=== PATIENT | female | born 1940 ===

== ENCOUNTER 2020-08-12 05:46 | Emergency (ER) | payer OTHER ==
[~2020-08-12] VITALS: Ht 162.6 cm; Wt 68.0 kg
[2020-08-12] MEDS ORDERED: METF500 PO (06:09)
[2020-08-12] MEDS ORDERED: Prinivil10 MG PO ×2 (06:09→06:10)
[2020-08-12] MEDS ORDERED: HYDROCHLOROTHIA25 MG PO (06:10)
[2020-08-12] MEDS ORDERED: TIZA4 PO (06:10)
[2020-08-12 06:35] LABS: BASOPHILS ABSOLUTE AUTO 0.05 K/mm3 (0.00-0.23); BASOPHILS PERCENT AUTO 1 % (0-2); EOSINOPHILS ABSOLUTE AUTO 0.15 K/mm3 (0.00-0.68); EOSINOPHILS PERCENT AUTO 2 % (0-6); Hematocrit 38.2 % (33.0-51.0); Hemoglobin 13.1 g/dL (11.5-16.0); IMMATURE GRAN ABSOLUTE AUTO 0.03 K/mm3 (0.00-0.10); IMMATURE GRAN PERCENT AUTO 0 % (0-1); LYMPHOCYTES ABSOLUTE AUTO 3.01 K/mm3 (0.84-5.20); LYMPHOCYTES PERCENT AUTO 42 % (21-46); MONOCYTES ABSOLUTE AUTO 0.82 K/mm3 (0.16-1.47); MONOCYTES PERCENT AUTO 12 % (4-13); Mean Corpuscular HGB Conc 34.3 g/dL (31.5-36.5); Mean Corpuscular Volume 85 fL (80-100); Mean Platelet Volume 10.1 fL (9.1-12.4); NEUTROPHILS ABSOLUTE AUTO 3.06 K/mm3 (1.96-9.15); NEUTROPHILS PERCENT AUTO 43 % (41-73); Platelet Count 296 K/mm3 (150-400); RDW Coefficient Variation 12.4 % (11.7-14.2); RDW Standard Deviation 38.2 fL (35.1-46.3); Red Blood Cell Count 4.51 M/mm3 (3.80-5.20); White Blood Cell Count 7.12 K/mm3 (4.00-11.30)
[2020-08-12 06:48] LABS: Alanine Aminotransfer (ALT/SGP 24 U/L (12-78); Albumin, Blood 3.3 g/dL (3.4-5.0); Albumin/Globulin Ratio 0.8 (0.8-1.8); Alk Phos 72 U/L (50-136); Anion Gap 7 mmol/L (6-16); Aspartate Aminotrans (AST/SGOT 15 U/L (12-37); Bilirubin, Total 0.3 mg/dL (0.1-1.0); Blood Urea Nitrogen 22 mg/dL (8-24); Bun/Creatinine Ratio 33.2 (12.0-20.0); CO2, Blood 29 mmol/L (21-32); Calcium, Blood 9.5 mg/dL (8.5-10.1); Chloride, Blood 96 mmol/L (98-108); Creatinine, Blood 0.66 mg/dL (0.40-1.00); Glomerular Filtration Rate >60 (60-); Glucose, Blood 185 mg/dL (70-99); Potassium, Blood 3.3 mmol/L (3.5-5.5); Sodium, Blood 132 mmol/L (136-145); Total Protein, Blood 7.3 g/dL (6.4-8.2)
[2020-08-12] MEDS ORDERED: HYDR1TAB94 PO (08:29)
[2020-08-12] MEDS ORDERED: ONDA4ODT MM (08:37)
[2020-08-12] MEDS ORDERED: PRED20 PO (08:37)
== END 2020-08-12 08:53 | disposition home or self-care (01) ==
LOC: ER 05:46
PROVIDERS: Emergency Medicine
DX: N28.89 Other specified disorders of kidney and ureter (principal); R10.9 Unspecified abdominal pain; F17.210 Nicotine dependence, cigarettes, uncomplicated; Z79.84 Long term (current) use of oral hypoglycemic drugs
CPT/HCPCS: 36415; 73502; 74177; 80053; 83690; 85025; 93005; 93010; 96374-59; 96375; 99284-25; J2405; J3010; Q9967

== ENCOUNTER 2020-09-22 22:13 | Inpatient (IN) | payer OTHER ==
[~2020-09-22] VITALS: Ht 160 cm; Wt 59.8 kg
[~2020-09-22 22:13] MED LIST: HYDR1TAB94 PO; HYDROCHLOROTHIA25 MG PO; METF500 PO; ONDA4ODT MM; PRED20 PO; Prinivil10 MG PO; TIZA4 PO
[2020-09-23 00:33] LABS: BASOPHILS ABSOLUTE AUTO 0.03 K/mm3 (0.00-0.23); BASOPHILS PERCENT AUTO 0 % (0-2); EOSINOPHILS ABSOLUTE AUTO 0.07 K/mm3 (0.00-0.68); EOSINOPHILS PERCENT AUTO 1 % (0-6); Hematocrit 36.9 % (33.0-51.0); Hemoglobin 13.5 g/dL (11.5-16.0); IMMATURE GRAN ABSOLUTE AUTO 0.04 K/mm3 (0.00-0.10); IMMATURE GRAN PERCENT AUTO 0 % (0-1); LYMPHOCYTES ABSOLUTE AUTO 3.06 K/mm3 (0.84-5.20); LYMPHOCYTES PERCENT AUTO 30 % (21-46); MONOCYTES ABSOLUTE AUTO 1.17 K/mm3 (0.16-1.47); MONOCYTES PERCENT AUTO 12 % (4-13); Mean Corpuscular HGB Conc 36.6 g/dL (31.5-36.5); Mean Corpuscular Volume 79 fL (80-100); Mean Platelet Volume 9.1 fL (9.1-12.4); NEUTROPHILS ABSOLUTE AUTO 5.83 K/mm3 (1.96-9.15); NEUTROPHILS PERCENT AUTO 57 % (41-73); Platelet Count 273 K/mm3 (150-400); RDW Coefficient Variation 12.2 % (11.7-14.2); RDW Standard Deviation 34.6 fL (35.1-46.3); Red Blood Cell Count 4.66 M/mm3 (3.80-5.20)
[2020-09-23 00:52] LABS: Troponin I 0.035 ng/mL (0.000-0.040)
[2020-09-23 01:02] LABS: Alanine Aminotransfer (ALT/SGP 25 U/L (12-78); Albumin, Blood 3.3 g/dL (3.4-5.0); Albumin/Globulin Ratio 0.9 (0.8-1.8); Alk Phos 67 U/L (50-136); Anion Gap 10 mmol/L (6-16); Aspartate Aminotrans (AST/SGOT 23 U/L (12-37); Bilirubin, Total 0.6 mg/dL (0.1-1.0); Blood Urea Nitrogen 12 mg/dL (8-24); Bun/Creatinine Ratio 13.7 (12.0-20.0); CO2, Blood 28 mmol/L (21-32); Calcium, Blood 8.6 mg/dL (8.5-10.1); Chloride, Blood 78 mmol/L (98-108); Creatinine, Blood 0.87 mg/dL (0.40-1.00); Globulin, Blood 3.7 g/dL (2.2-4.0); Glomerular Filtration Rate >60 (60-); Glucose, Blood 161 mg/dL (70-99); Potassium, Blood 3.6 mmol/L (3.5-5.5); Sodium, Blood 116 mmol/L (136-145)
[2020-09-23] MEDS ORDERED: HYDCHL25 PO (02:11)
[2020-09-23] MEDS ORDERED: PREGABALIN75 MG PO (02:12)
[2020-09-23] MEDS ORDERED: ZOFRAN4 MG PO (02:12)
[2020-09-23 02:33] LABS: Bilirubin, Urine Neg (Neg); Blood, Urine 4+ (Neg); Color, Urine Yellow (P-Yellow); Glucose Qualitative, Urine 2+ (Neg); Ketones, Urine 2+ (Neg); Leukocyte Esterase, Urine Neg (Neg); Nitrite, Urine Neg (Neg); Protein, Urine 1+ (Neg); Urobilinogen, Urine NORM (Normal)
[2020-09-23 02:34] LABS: Appearance, Urine Clear (Clear); Bacteria Mod /hpf; Mucus Light (0-Heavy); Squamous Epithelial Cells Mod /hpf (Few); White Blood Cells, Urine Rare /hpf (0-5)
--- NOTE | 2020-09-23 04:56 | NUR ---
ADMIT NOTE HANDOFF RECEIVED FROM POWER LINEWORKER ANGELA. PT ARRIVED TO FLOOR VIA GURNEY. DAUGHTER CAME WITH TO TRANSLATE, PT ONLY SPEAKS TAMAZIGHT. PT ORIENTED TO UNIT TELEMETRY IN PLACE, IV FLUIDS INFUSING ORDERED. CALL BUTTON WITHIN REACH
[2020-09-23 09:29] LABS: Anion Gap 7 mmol/L (6-16); Blood Urea Nitrogen 9 mg/dL (8-24); CO2, Blood 28 mmol/L (21-32); Calcium, Blood 8.4 mg/dL (8.5-10.1); Chloride, Blood 85 mmol/L (98-108); Creatinine, Blood 0.69 mg/dL (0.40-1.00); Glomerular Filtration Rate >60 (60-); Glucose, Blood 167 mg/dL (70-99); Potassium, Blood 3.3 mmol/L (3.5-5.5); Sodium, Blood 120 mmol/L (136-145)
[2020-09-23 13:02] LABS: Anion Gap 7 mmol/L (6-16); Blood Urea Nitrogen 10 mg/dL (8-24); Bun/Creatinine Ratio 17.2 (12.0-20.0); CO2, Blood 26 mmol/L (21-32); Calcium, Blood 8.4 mg/dL (8.5-10.1); Chloride, Blood 90 mmol/L (98-108); Creatinine, Blood 0.58 mg/dL (0.40-1.00); Glomerular Filtration Rate >60 (60-); Glucose, Blood 183 mg/dL (70-99); Potassium, Blood 3.4 mmol/L (3.5-5.5); Sodium, Blood 123 mmol/L (136-145)
--- NOTE | 2020-09-23 17:31 | NUR ---
SHIFT SUMMARY PT AXO, PLEASANT AND COOPERATIVE WITH CARE. ONLY [place] ISLANDER SPEAKING, DAUGHTER IN ROOM TO ASSIST WITH TRANSLATING THOUGH CHARGE NURSE LOOKING FOR DENIAL RESOLUTION SPECIALIST PHONE FOR MEDICAL TRANSLATING AT THIS TIME. VSS. PT REPORTS DIARRHEA IS SLOWING DOWN BUT COMPLAINS OF BLOOD WHEN SHE WIPES AFTER SHE URINATES. URINE YELLOW. PT UP WITH 1 ASSIST WITH FWW. PT COMPLAINED OF NECK PAIN 3/10, MEDICATED PER EMAR. IV PATENT AND INFUSING PER EMAR. BED IN LOW POSITION, CALL LIGHT WITHIN REACH. PT'S DAUGHTER STATED THAT PATIENT HAS NOT BEEN ABLE TO SLEEP BUT DID NOT WANT TO TAKE LYRICA, DR ROSENBERG AWARE, NEW ORDERS PLACED. PT SITTING UP IN BED EATING DINNER AT THIS TIME.
--- NOTE | 2020-09-24 04:33 | NUR ---
SHIFT SUMMARY ADMITTED FOR HYPONATREMIA. FULL CODE. PLAN IS TO OBTAIN THE ABDOMINAL CT SCAN RESULTS/INTERPRETATION AND THEN DEVELOP A PLAN OF CARE. TELEMETRY: LALO @ 52 BPM. SHE IS ACHS. NS W/20 MEQ INFUSING. IV ANTIB RX ARE SCHEDULED. SHE REPORTS HX OF VAGINAL (OR URETHRAL?) BLEEDING, A RENAL MASS, PANCREATIC CYST, AND SCIATICA. I DID CALL HOSPITALIST TO OBTAIN A STRONGER SLEEPING PILL, THE MELATONIN WAS UNSUCCESSFUL. EVEN SO, SHE HAS NOT SLEPT MUCH THIS SHIFT AT ALL EITHER. I HAVE NOTICED FREQUENCY OF URINATION.
[2020-09-24 06:10] LABS: BASOPHILS ABSOLUTE AUTO 0.02 K/mm3 (0.00-0.23); BASOPHILS PERCENT AUTO 0 % (0-2); EOSINOPHILS ABSOLUTE AUTO 0.01 K/mm3 (0.00-0.68); EOSINOPHILS PERCENT AUTO 0 % (0-6); Hematocrit 35.3 % (33.0-51.0); Hemoglobin 12.3 g/dL (11.5-16.0); IMMATURE GRAN ABSOLUTE AUTO 0.03 K/mm3 (0.00-0.10); IMMATURE GRAN PERCENT AUTO 1 % (0-1); LYMPHOCYTES ABSOLUTE AUTO 1.41 K/mm3 (0.84-5.20); LYMPHOCYTES PERCENT AUTO 30 % (21-46); MONOCYTES ABSOLUTE AUTO 0.62 K/mm3 (0.16-1.47); MONOCYTES PERCENT AUTO 13 % (4-13); Mean Corpuscular HGB 29.1 pg (26.0-34.0); Mean Corpuscular HGB Conc 34.8 g/dL (31.5-36.5); Mean Platelet Volume 9.1 fL (9.1-12.4); NEUTROPHILS ABSOLUTE AUTO 2.65 K/mm3 (1.96-9.15); NEUTROPHILS PERCENT AUTO 56 % (41-73); Platelet Count 252 K/mm3 (150-400); RDW Coefficient Variation 12.9 % (11.7-14.2); RDW Standard Deviation 38.5 fL (35.1-46.3); Red Blood Cell Count 4.23 M/mm3 (3.80-5.20); White Blood Cell Count 4.74 K/mm3 (4.00-11.30)
[2020-09-24 06:13] LABS: Mean Corpuscular Volume 84 fL (80-100)
[2020-09-24 06:43] LABS: Alanine Aminotransfer (ALT/SGP 23 U/L (12-78); Albumin, Blood 3.1 g/dL (3.4-5.0); Albumin/Globulin Ratio 0.9 (0.8-1.8); Alk Phos 59 U/L (50-136); Aspartate Aminotrans (AST/SGOT 11 U/L (12-37); Bilirubin, Total 0.3 mg/dL (0.1-1.0); Blood Urea Nitrogen 7 mg/dL (8-24); Bun/Creatinine Ratio 9.8 (12.0-20.0); CO2, Blood 26 mmol/L (21-32); Calcium, Blood 8.8 mg/dL (8.5-10.1); Chloride, Blood 105 mmol/L (98-108); Creatinine, Blood 0.72 mg/dL (0.40-1.00); Globulin, Blood 3.3 g/dL (2.2-4.0); Glomerular Filtration Rate >60 (60-); Glucose, Blood 181 mg/dL (70-99); Total Protein, Blood 6.4 g/dL (6.4-8.2)
[2020-09-24 06:44] LABS: Anion Gap 3 mmol/L (6-16); Sodium, Blood 134 mmol/L (136-145)
--- NOTE | 2020-09-24 12:41 | NUR ---
ADMIT: 09/22/20 DISCHARGE: DX: Hyponatremia CC: [email or web address] BRANDIN CALL: RESIDENCE: CAREGIVER: Tran Witt , Child, DX: HTN, DM type 2 DME: DM supplies CCM: none HOME HEALTH: none SUMMARY: 09/24/20- no plan for d/c at this time. 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 Per Dr. Vieira, pt most likely to stay through the weekend. -kervin
[2020-09-24 18:34] LABS: SARS-Cov-2 (COVID-19) PCR, MMC NEGATIVE (NEGATIVE)
--- NOTE | 2020-09-24 18:38 | NUR ---
A&OX3, PLEASANT AND COOPERATIVE WITH CARE. LAO SPEAKING ONLY, PT'S DAUGHTER PRESENT MOST OF THE DAY TO EXPLAIN PROCEDURES, SHE HAS BEEN VERY HELPFUL. PT REPORTS PAIN TO ABD AND AND CHRONIC BACK PAIN THAT IS TOLERABLE AND DENIES NEED FOR PAIN MEDICATION. NO N/V, SOB. COVID TEST NEGATIVE TODAY. IV FLUIDS D/C'D. NO OTHER CHANGES OR CONCERNS.
--- NOTE | 2020-09-25 05:26 | NUR ---
PATIENT ALERT AND PLEASANT AND COOPERATIVE WITH CARE. DAUGHTER SPENT NIGHT AND TRANSLATED FOR HER SO SHE COULD ASK QUESTIONS AND UNDERSTAND TREATMENT PLAN. PATIENT ONLY COMPLAINED OF SOME VAGUE ABDOMINAL DISCOMFORT WHICH WAS SOLVED WITH SODA CRACKERS AND A CUP OF WARM SALTY WATER. SLEPT WELL OVERNIGHT.
[2020-09-25 06:31] LABS: BASOPHILS ABSOLUTE AUTO 0.04 K/mm3 (0.00-0.23); BASOPHILS PERCENT AUTO 1 % (0-2); EOSINOPHILS ABSOLUTE AUTO 0.06 K/mm3 (0.00-0.68); EOSINOPHILS PERCENT AUTO 1 % (0-6); Hematocrit 36.5 % (33.0-51.0); Hemoglobin 12.7 g/dL (11.5-16.0); IMMATURE GRAN ABSOLUTE AUTO 0.02 K/mm3 (0.00-0.10); IMMATURE GRAN PERCENT AUTO 0 % (0-1); LYMPHOCYTES ABSOLUTE AUTO 2.17 K/mm3 (0.84-5.20); LYMPHOCYTES PERCENT AUTO 29 % (21-46); MONOCYTES ABSOLUTE AUTO 0.71 K/mm3 (0.16-1.47); MONOCYTES PERCENT AUTO 9 % (4-13); Mean Corpuscular HGB Conc 34.8 g/dL (31.5-36.5); Mean Corpuscular Volume 83 fL (80-100); Mean Platelet Volume 9.6 fL (9.1-12.4); NEUTROPHILS ABSOLUTE AUTO 4.56 K/mm3 (1.96-9.15); NEUTROPHILS PERCENT AUTO 60 % (41-73); Platelet Count 259 K/mm3 (150-400); RDW Coefficient Variation 12.8 % (11.7-14.2); RDW Standard Deviation 38.7 fL (35.1-46.3); Red Blood Cell Count 4.38 M/mm3 (3.80-5.20); White Blood Cell Count 7.56 K/mm3 (4.00-11.30)
[2020-09-25 06:56] LABS: Anion Gap 7 mmol/L (6-16); Blood Urea Nitrogen 13 mg/dL (8-24); Bun/Creatinine Ratio 17.9 (12.0-20.0); CO2, Blood 24 mmol/L (21-32); Calcium, Blood 9.7 mg/dL (8.5-10.1); Chloride, Blood 102 mmol/L (98-108); Creatinine, Blood 0.73 mg/dL (0.40-1.00); Glomerular Filtration Rate >60 (60-); Glucose, Blood 227 mg/dL (70-99); Potassium, Blood 3.7 mmol/L (3.5-5.5); Sodium, Blood 133 mmol/L (136-145)
[2020-09-25] MEDS ORDERED: NORVASC10 MG PO (14:16)
[2020-09-25] MEDS ORDERED: METO50ER PO (14:17)
[2020-09-25] MEDS ORDERED: PANT40 PO (14:18)
[2020-09-25] MEDS ORDERED: TRAZ50 PO (14:19)
--- NOTE | 2020-09-25 16:10 | NUR ---
Discharge note The patient was A/OX4 to person, place, time and event. the patient and daughter was given written and verbal discharge information about medications and how and when to follow up with their provider at [facility]. The patient and the daughter verbalized the inderstanding of the discharge instruction and did not have any questions. The patient was discharged to the care of her daughter and she was escorted off the floor.
== END 2020-09-25 14:41 | disposition home health service (06) | DRG 641 ==
LOC: ER 22:13 → MEDS 09-23 03:43
PROVIDERS: Family Medicine; Internal Medicine; Student in an Organized Health Care Education/Training Program; ADMIT Internal Medicine
DX: E87.1 Hypo-osmolality and hyponatremia (principal); I16.0 Hypertensive urgency; R63.0 Anorexia; Z68.26 Body mass index [BMI] 26.0-26.9, adult; T50.2X5A Adverse effect of carbonic-anhydrase inhibitors, benzothiadiazides and other diuretics, initial encounter; M54.6 Pain in thoracic spine; I10 Essential (primary) hypertension; N93.9 Abnormal uterine and vaginal bleeding, unspecified; N28.9 Disorder of kidney and ureter, unspecified; G47.00 Insomnia, unspecified; Z20.822 Contact with and (suspected) exposure to COVID-19; R31.9 Hematuria, unspecified; E11.9 Type 2 diabetes mellitus without complications; Z90.49 Acquired absence of other specified parts of digestive tract; Z79.84 Long term (current) use of oral hypoglycemic drugs; Z79.899 Other long term (current) drug therapy; X58.XXXA Exposure to other specified factors, initial encounter
CPT/HCPCS: 36415; 71046; 74177; 80048; 80053; 81001; 82947; 83036; 83690; 83735; 84484; 84681; 85025; 87086; 93005; 93010; 96361; 96374; 97110; 97162; 97166; 97535; 99285-25; A9270; C9113; J0360; J0696; J1650; J2405; J3480; J7030; Q9967; U0004

== ENCOUNTER → 2020-09-27 | Outpatient (CLI) | payer OTHER ==
[~2020-09-27] MED LIST changes: +HYDCHL25 PO; +METO50ER PO; +NORVASC10 MG PO; +PANT40 PO; +PREGABALIN75 MG PO; +TRAZ50 PO; +ZOFRAN4 MG PO
[2020-09-27 09:42] LABS: Source, Urine Clean Catch
[2020-09-27 09:51] LABS: Bacteria Not Seen /hpf; Squamous Epithelial Cells Few /hpf (Few); White Blood Cells, Urine Not Seen /hpf (0-5)
== END | disposition home or self-care (01) ==
LOC: LAB SHORT 09:41 → LAB 09:41
PROVIDERS: Family Medicine
DX: R31.0 Gross hematuria (principal)
CPT/HCPCS: 81015

== ENCOUNTER → 2020-10-21 | Outpatient (CLI) | payer OTHER ==
[2020-10-21 13:19] LABS: Source, Urine Clean Catch
[2020-10-21 14:22] LABS: Color, Urine Yellow (P-Yellow)
[2020-10-21 14:23] LABS: Appearance, Urine Clear (Clear); Bacteria Few /hpf; Bilirubin, Urine Neg (Neg); Blood, Urine Neg (Neg); Glucose Qualitative, Urine Trace (Normal); Ketones, Urine Neg (Neg); Leukocyte Esterase, Urine Neg (Neg); Nitrite, Urine Neg (Neg); Protein, Urine Neg (Neg); Red Blood Cells, Urine 0-2 /hpf (0-2); Squamous Epithelial Cells Mod /hpf (Few); Urobilinogen, Urine NORM (Normal); White Blood Cells, Urine 0-2 /hpf (0-5)
== END | disposition home or self-care (01) ==
LOC: LAB 13:15 → LAB SHORT 13:15
PROVIDERS: Family Medicine
DX: R31.29 Other microscopic hematuria (principal)
CPT/HCPCS: 81001; 81003

== ENCOUNTER → 2022-09-19 | Outpatient (CLI) | payer OTHER | LOC: LAB 17:09 | DX: Z51.81 Encounter for therapeutic drug level monitoring (principal); Z79.899 Other long term (current) drug therapy ==

== ENCOUNTER → 2023-11-13 | Outpatient (CLI) | payer OTHER ==
[~2023-11-13] MED LIST changes: +MEMANTINE HCL511 PO; +NOVOLIN R100 UNIT/2 SC; +OXYC5; +PLAVIX75 MG PO; +Robaxin750 MG PO; +STEGLATRO5 MG PO; +SUCRALFATE114 PO
== END ==
LOC: LAB SHORT 17:17 → LAB 17:17
DX: N39.0 Urinary tract infection, site not specified (principal)
CPT/HCPCS: 87086

== ENCOUNTER → 2024-01-14 | Outpatient (CLI) | payer OTHER | END | disposition home or self-care (01) | LOC: LAB SHORT 12:00 → LAB 12:00 | DX: E11.42 Type 2 diabetes mellitus with diabetic polyneuropathy (principal); E11.51 Type 2 diabetes mellitus with diabetic peripheral angiopathy without gangrene; M21.6X2 Other acquired deformities of left foot | CPT/HCPCS: 87070; 87075; 87077; 87186; 87205 ==